=== PATIENT | male | born 1955 | race Caucasian/White ===

== ENCOUNTER 2018-08-01 06:01 | Day surgery (SDC) | payer BC ==
--- NOTE | 2018-07-31 10:04 | HP ---
HISTORY OF PRESENT ILLNESS: Mr. Duffy is a 63-year-old male who reports to our office for left hand numbness following EMG/NCV. He has been using a splint on the left wrist which has helped with the paresthesia in the hand. The symptoms are chiefly in the thenar eminence thumb, index finger, and mi ddle fingers. At night without the splint the left hand has significant paresthesia requiring him to shake it out of the wrist before falling back to sleep. REVIEW OF SYSTEMS: A 10-point review of systems has been completed and is negative other than stated above in the HPI. PAST MEDICAL HISTORY: The patient denies any past medical history. PAST SURGICAL HISTORY: Vasectomy, tonsillectomy, left knee, right shoulder spur. FAMILY HISTORY: Noncontributory. SOCIAL HISTORY: The patient is a nonsmoker. Works as a project construction assistant manager. with 2 children. MEDICATIONS: Gabapentin, finasteride. ALLERGIES: No known drug allergies. PHYSICAL EXAMINATION: GENERAL: The patient is alert and oriented x3. He is afebrile, normotensive. Does not appear to be in any visible distress. HEENT: Head normocephalic, atraumatic. Hearing is intact. Vision is intact. Moist mucous membrane s. Eyes: Pupils are equal, round, reactive to light. Extraocular movements are intact. RESPIRATORY: Normal work of breathing. CARDIOVASCULAR: Normal S1, S2, regular rate and rhythm. NEUROLOGIC: Gait and station are normal. MOTOR EXAM: There is normal strength in the deltoids, biceps, triceps, wrist extensors, finger exten sors, and interossei. SENSORY EXAM: Mild loss of sensation in left palm median distribution. Moderate Tinel's at the left wrist. IMAGING: Testing EMG/NCV; no radiculopathy, left greater than right carpal tunnel syndrome, some rig ht ulnar tunnel syndrome at the elbow. ASSESSMENT AND PLAN: Left carpal tunnel. Dr. Andersen has offered to decompress the carpal tunnel of the left. We have discussed the indications, risks, benefits, alternatives, and expected results from surgery. The risks discussed included, but were not limited to bleeding, infection, nerve damag e, hand and complex regional pain syndrome and reflex sympathetic dystrophy and cardiopulmonary compl ications of sedation including . The patient states he understands the risks and is willing to proceed with surgery.
[2018-07-31 10:21] VITALS: BMI 29.0
[2018-08-01] MEDS ORDERED: Lidocaine 1% (PF) 30 ML VIAL ONE (06:41)
[2018-08-01] MEDS ORDERED: Bacitracin Zinc Ointment 30 gm TUBE ONE (06:41)
[2018-08-01] MEDS ORDERED: Sodium Chloride 0.9% 10 ML ONE (06:43)
[2018-08-01] MEDS ORDERED: Propofol 1,000 MG/100 ML VIAL IV ONE (06:48)
[2018-08-01 06:54] LABS: #Eosinphils 0.1 thou/uL (0.0-0.7); #Lymphocytes 1.6 thou/uL (1.20-3.40); #Monocytes 0.4 thou/uL (0.11-0.59); #Neutrophils 3.7 thou/uL (1.40-6.50); %Basophils 0.7 % (0.0-1.0); %Eosinophils 1.5 % (0.0-10.0); %Lymphocytes 27.5 % (21.0-51.0); %Neutrophils 63.3 % (42.0-75.0); Hemoglobin 16.8 g/dL (14.0-18.0); Mean Corpuscular HGB CONC 34.3 g/dL (32.0-36.0); Mean Corpuscular Hemoglobin 29.7 pg (27.0-31.0); Mean Corpuscular Volume 86.6 fL (78.0-98.0); Mean Platelet Volume 7.9 fL (7.4-10.4); Platelet Count 169 thou/uL (130-400); RBC Distribution Width 12.5 % (11.5-14.5); Red Blood Cell (RBC) Count 5.65 mill/uL (4.70-6.10); White Blood Cell (WBC) Count 5.8 thou/uL (4.8-10.8)
[2018-08-01] MEDS ORDERED: CEFAZOLIN/Water 2 GM/20 ML SYRINGE ONE (07:00)
[2018-08-01 07:02] LABS: PTT 38.7 SEC (22.9-36.1); Prothrombin Time 12.8 SEC (12.0-14.7)
[2018-08-01] MEDS ORDERED: Ondansetron PF 4 MG/2 ML Vial ONE (07:16)
[2018-08-01] MEDS ORDERED: Ketorolac Tromethamine 30 MG/ML VIAL ONE (07:16)
--- NOTE | 2018-08-01 08:23 | OP ---
DATE OF PROCEDURE: 08/01/2018 SURGEON: Gilma Andersen M.D. VP PUBLISHER DEVELOPMENT: Danae Dorman PA-C. PREOPERATIVE INDICATION: Treat pain, prevent neurological deterioration. 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 POSTOPERATIVE DIAGNOSIS: Left carpal tunnel syndrome (median neuropathy at the wrist). OPERATIVE PROCEDURE: Decompression, left carpal tunnel (median neurorrhaphy at the wrist), left side . PREOPERATIVE MEDICATION: Ancef 2 grams IV. DRAIN NUMBER: Zero. DRAIN TYPE: None. PROCEDURE IN DETAIL: The patient was brought to the operating room. IV sedation was administered. We planned our incision for the distal palmar crease in the left hand out into the palm in line with the web space between the middle and ring finger to a line extending from the base of thenar eminence . Under this planned incision, we infused local anesthetic. The entire left arm was sterilely prepp ed and draped. We opened our incision with a 15 blade knife and controlled bleeding with bipolar cau chelsey. We placed a self-retaining retractor. With a fresh 15 blade, we slowly and meticulously secti oned the transverse carpal ligament until the carpal tunnel was opened. We then placed a [place] #4 dissector over the median nerve and sectioned the carpal tunnel distally until we encountered the pa lmar fat pad. We turned our attention up the wrist. Using a Luis Antonio rake, we lifted the skin. We plac ed a [place] dissector over the median nerve and advanced scissors into the wrist until we had freed the carpal tunnel proximally. There is no more compression of the median nerve. We irrigated copio usly with bacitracin irrigation. We controlled bleeding with very gentle bipolar cautery. We closed the skin with vertical mattress sutures and we applied a sterile dressing. This was a clean case an d no contamination.
== END 2018-08-01 09:10 | disposition home or self-care (01) ==
LOC: SDC 06:01
PROVIDERS: ATTEND Neurological Surgery
PROC: 01N50ZZ Release Median Nerve, Open Approach (ICD-10-PCS; principal; 2018-08-01)
DX: G56.03 Carpal tunnel syndrome, bilateral upper limbs (principal); G56.21 Lesion of ulnar nerve, right upper limb; Z79.899 Other long term (current) drug therapy
CPT/HCPCS: 85025; 85610; 85730; J1885; J2001; J2405; J2704; J3490

== ENCOUNTER 2020-03-30 06:49 | Outpatient (CLI) | payer BC, OTHER ==
[2020-03-31 12:09] LABS: SARS-CoV-2 MS2 Positive; SARS-CoV-2 N Gene Negative; SARS-CoV-2 S Gene Negative; SARS-CoV-2 orf1ab Negative
== END 2020-03-30 06:50 | disposition home or self-care (01) ==
LOC: LABBT 06:49
PROVIDERS: ATTEND Neurological Surgery
DX: Z01.812 Encounter for preprocedural laboratory examination (principal); Z11.59 Encounter for screening for other viral diseases; M54.16 Radiculopathy, lumbar region
CPT/HCPCS: 87635; U0003

== ENCOUNTER 2020-04-01 06:19 | Day surgery (SDC) | payer BC ==
[2020-03-29 10:37] VITALS: BMI 27.1
--- NOTE | 2020-03-31 13:17 | HP ---
HISTORY OF PRESENT ILLNESS: Mr. Duffy is a pleasant 64-year-old man, referred to us by Dr. Magdaleno at [facility] for evaluation of lower back pain and bilateral lower extremity S1 pattern of pain, right much greater than left. He actually has had back and right lower extremity pain since around 1995, but this year in December, he was working at his home in [place] and started to have an increase in the symptoms that since that time has continued to worsen and persist. He has attempted one caudal steroid injection with Dr. Magdaleno, which provided short-term relief as well as several rounds of steroids orally, which provided relief for the duration that he takes them. New MRI from [facility], that overall reveals a well appearing lumbar spine with straightening of the normal lordosis as well as some early degenerative disk disease, moderate at L5, there is a small right-sided disk osteophyte complex that impacts the descending right S1 nerve root. This is very likely the culprit of his problems. He hopes to discuss possible operative management. MEDICAL HISTORY: Includes chronic back pain, gastroesophageal reflux disease, arthritis. PAST SURGICAL HISTORY: Unspecified shoulder surgery, unspecified knee surgery, and tonsillectomy. PAST FAMILY HISTORY: Father alive with diabetes. Mother with heart disease. MEDICATIONS: Finasteride. SOCIAL HISTORY: Denies tobacco use. Reports social alcohol use. ALLERGIES: NO KNOWN DRUG ALLERGIES. EXAMINATION DEFERRED FOR [facility]-19 TELE-HEALTH VISIT. ASSESSMENT: Lumbar radiculopathy. PLAN: Dr. Oliveira met with the patient, reviewed imaging, and advocated for right L5-S1 decompression. He explained to the patient the risks, benefits, and alternatives to the procedure. The patient expressed understanding and elected to move forward with surgery as discussed. I do believe the patient is mentally competent and capable of making medical decisions for himself. We will move forward with surgery as planned. Job ID: [id number]
[2020-04-01] MEDS ORDERED: EPINEPHrine 1 MG/ML AMP ONE (08:21)
[2020-04-01] MEDS ORDERED: Bupivacaine PF 0.5% 30 ML VIAL ONE (08:21)
[2020-04-01] MEDS ORDERED: Thrombin 5000 UNITS/5 ML VIAL ONE (08:21)
[2020-04-01] MEDS ORDERED: Fentanyl 100 MCG/2 ML VIAL ONE ×2 (09:18→10:12)
[2020-04-01] MEDS ORDERED: Tamsulosin HCl 0.4 MG CAP ONE (10:00)
--- NOTE | 2020-04-01 10:03 | OP ---
DATE OF PROCEDURE: 04/01/2020 TEXTILE EXAMINER: Justino Gibbs PA-C INDICATION: Pain. DIAGNOSIS: Right S1 radiculopathy. PROCEDURE PERFORMED: Right L5-S1 decompression. ANESTHESIA: General. DESCRIPTION OF PROCEDURE: The patient was brought into the operating room and placed under general anesthesia. He was flipped from the supine to prone position on the operating room table. A linear incision was planned over L5-S1. After prepping and draping and after an appropriate preoperative pause, the incision was created. The soft tissues were swept right of midline. A self-retaining retractor was placed and a C-arm image was obtained to confirm the appropriate level. After confirming the appropriate level with C-arm fluoroscopy, hemilaminectomy was performed along the inferior aspect of L5 and superior aspect of S1. The laminectomy was extended laterally to encompass the medial aspect of the facet joint. The descending S1 nerve root was identified and decompressed from the moment of takeoff from the thecal sac to the proximal entrance of the S1 foramen. The epidural fat was removed. The disk was palpated and not found to be contributory. After completing the decompression, the wound was irrigated. Hemostasis was maintained throughout. The wound was then closed in anatomic layers and a pressure dressing was applied. There were no known procedural complications. Job ID: [id number]
[2020-04-01] MEDS ORDERED: Dexamethasone 20 MG/5 ML VIAL ONE (11:14)
[2020-04-01] MEDS ORDERED: Ondansetron PF 4 MG/2 ML Vial ONE (11:14)
[2020-04-01] MEDS ORDERED: Rocuronium Bromide 10 MG/ML (10ML VIAL) ONE (11:14)
[2020-04-01] MEDS ORDERED: Ketorolac Tromethamine 30 MG/ML VIAL ONE (11:14)
[2020-04-01] MEDS ORDERED: Glycopyrrolate 0.2 MG/ML 5 ML SYRINGE ONE (11:14)
[2020-04-01] MEDS ORDERED: Lidocaine 1% PF 5 ML VIAL ONE (11:14)
[2020-04-01] MEDS ORDERED: PROPOFOL 200 MG/20 ML VIAL ONE (11:14)
== END 2020-04-01 12:50 | disposition home or self-care (01) ==
LOC: SDC 06:19
PROVIDERS: ATTEND Neurological Surgery
PROC: 01NB0ZZ Release Lumbar Nerve, Open Approach (ICD-10-PCS; principal; 2020-04-01)
DX: M51.16 Intervertebral disc disorders with radiculopathy, lumbar region (principal); K21.9 Gastro-esophageal reflux disease without esophagitis; M19.90 Unspecified osteoarthritis, unspecified site; Z79.52 Long term (current) use of systemic steroids; Z79.84 Long term (current) use of oral hypoglycemic drugs; Z79.899 Other long term (current) drug therapy
CPT/HCPCS: 76000; J0171; J0690; J1100; J1885; J2001; J2405; J2704; J3010; S0020

== ENCOUNTER 2020-06-01 09:02 | Outpatient (CLI) | payer BC ==
--- NOTE | 2020-06-01 13:48 | NM ---
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 FINDINGS: There is bilaterally increased uptake of radiopharmaceutical in the major joints, consistent with deg enerative changes. Otherwise, there are no foci of asymmetrically increased uptake that are particularly suspicious for bone metastases. IMPRESSION: 1. Osteoarthrosis. 2. No compelling evidence of skeletal metastasis. 3. Please note that the. The osteolytic lesions of multiple myeloma typically demonstrate no uptake o n bone scans (unless there is callus around pathologic fractures).
[2020-06-01] MEDS ORDERED: Iopamidol 370 76% 100 ML VIAL ONE (14:10)
--- NOTE | 2020-06-02 09:29 | CT ---
CT CHEST AND ABDOMEN AND PELVIS WITH IV CONTRAST: INDICATION: Monoclonal gammopathy. CT CHEST: The lungs show no evidence of infiltrate or effusion. There are numerous small bilateral pulmonary n odules. These nodules measuring in size from 2 to 5 mm. Some of these small nodules appear to be ca lcified, although many are not calcified. Some mild pleural thickening in the posterior lung bases. Mediastinum is unremarkable. There are nonspecific lymph nodes. There are calcified lymph nodes in the right paratracheal region which would suggest a prior granulomatous process. The osseous structures are unremarkable. The thoracic vertebrae maintain normal height and alignment . Thoracic aorta is unremarkable. Pulmonary arteries are opacified, and there is no evidence of proxim al pulmonary embolus. Thyroid unremarkable. IMPRESSION: Numerous small bilateral pulmonary nodules. A few of these appear calcified. There are calcified ri ght paratracheal lymph nodes and findings may indicate a prior granulomatous process. Followup is re commended. CT ABDOMEN AND PELVIS: There is a low-density lesion in the left lobe of the liver posteriorly near the SVC which measures 1 .3 cm. The liver is otherwise unremarkable. The spleen and pancreas are unremarkable. Stomach and duodenum unremarkable. Adrenal glands normal. Kidneys unremarkable. Small bowel loops appear normal. Appendix appears normal. Colon unremarkable. Aorta normal caliber. No adenopathy. Images through the pelvis show unremarkable urinary bladder. Mild prostatic hypertrophy. Osseous structures are unremarkable. Lumbar vertebrae maintain height and alignment. No evidence of osseous lytic process. IMPRESSION: 1. A single low-density lesion in the liver may represent a small hepatic cyst. Suggest ultrasound for confirmation. 2. CT abdomen and pelvis otherwise unremarkable. POS: [facility]
== END 2020-06-01 09:03 | disposition home or self-care (01) ==
LOC: CT 09:02
PROVIDERS: ATTEND Internal Medicine Hematology & Oncology
DX: D47.2 Monoclonal gammopathy (principal); R63.4 Abnormal weight loss; R91.8 Other nonspecific abnormal finding of lung field; K76.9 Liver disease, unspecified; C90.00 Multiple myeloma not having achieved remission; M19.90 Unspecified osteoarthritis, unspecified site
CPT/HCPCS: 71260; 74177; 78306; A9503; Q9967

== ENCOUNTER 2020-12-15 10:08 | Outpatient (CLI) | payer BC | END 2020-12-15 10:09 | disposition home or self-care (01) | LOC: BICCT 10:08 | PROVIDERS: ATTEND Internal Medicine Critical Care Medicine | DX: R91.8 Other nonspecific abnormal finding of lung field (principal) | CPT/HCPCS: 71250 ==